=== PATIENT | male | born 1965 | race Caucasian/White ===

== ENCOUNTER 2024-06-10 06:27 | Day surgery (SDC) | payer OTHER ==
[2024-06-03 10:50] VITALS: BMI 29.0
[2024-06-10] MEDS ORDERED: ONDANSETRON 4 MG/2 ML VIAL IVPUSH PRN (07:31)
[2024-06-10] MEDS ORDERED: oxyCODONE HCL 5 MG TABLET PO PRN ×2 (07:31)
[2024-06-10] MEDS ORDERED: ACETAMINOPHEN 325 MG TABLET (FP) PO PRN (07:31)
[2024-06-10] MEDS ORDERED: LACTATED RINGERS SOLUTION 1,000 ML IV SCH (07:45)
[2024-06-10] MEDS ORDERED: BUPIVACAINE HCL/PF 0.25% (2.5MG/ML) 10 ML VIAL ONE (08:11)
[2024-06-10] MEDS ORDERED: EPINEPHrine 1:1,000 1,000 MCG/ML ML ONE (08:11)
[2024-06-10] MEDS ORDERED: ceFAZolin SODIUM 1 GM VIAL ONE (08:19)
[2024-06-10] MEDS ORDERED: DEXAMETHASONE SOD PHOSPHATE 4 MG/1 ML VIAL ONE (08:19)
[2024-06-10] MEDS ORDERED: KETOROLAC TROMETHAMINE 30 MG/1 ML VIAL ONE (08:19)
[2024-06-10] MEDS ORDERED: PROPOFOL 20 ML ONE (08:19)
[2024-06-10] MEDS ORDERED: MIDAZOLAM HCL 2 MG/2 ML SINGLE DOSE VIAL ONE (08:20)
[2024-06-10] MEDS ORDERED: ACETAMINOPHEN INJECTION 100 ML ONE (08:40)
[2024-06-10] MEDS: BUPIVACAINE HCL/PF 0.25% (2.5MG/ML) 10 ML VIAL IJ ONE (09:26)
[2024-06-10] MEDS ORDERED: FENTANYL CITRATE/PF 50 MCG/ML VIAL ONE (10:04)
[2024-06-10] MEDS ORDERED: oxyCODONE HCL 5 MG TABLET ONE (10:39)
[2024-06-10 11:53] VITALS: RESP 16; TEMP 97.1
[2024-06-10 11:58] VITALS: BP 149/64; PULSE 88
== END 2024-06-10 11:20 | disposition home or self-care (01) ==
LOC: FASU 06:27
PROVIDERS: ATTEND Orthopaedic Surgery Sports Medicine
PROC: 0SBD4ZZ Excision of Left Knee Joint, Percutaneous Endoscopic Approach (ICD-10-PCS; principal; 2024-06-10 09:26)
DX: S83.242A Other tear of medial meniscus, current injury, left knee, initial encounter (principal)
CPT/HCPCS: 94760; J0131